=== PATIENT | male | born 1945 | race Caucasian/White ===

== ENCOUNTER → 2021-04-07 09:28 | Outpatient (CLI) | payer MEDICARE, SELFPAY ==
[2021-04-07 20:09] LABS: SARS-CoV-2 RNA PCR Negative
== END ==
PROVIDERS: PCP Internal Medicine; Visit Provider Physician Assistant
DX: J01.90 Acute sinusitis, unspecified (principal); Z20.822 Contact with and (suspected) exposure to COVID-19
CPT/HCPCS: C9803; U0003; U0005

== ENCOUNTER 2023-03-10 06:38 | Outpatient (CLI) | payer MEDICARE, SELFPAY ==
--- NOTE | ~2023-03-10 | MR_ITS ---
EXAMINATION: MR IAC wo/w con DATE: 03/10/2023 07:40 INDICATION: Asymmetrical sensorineural hearing loss. TECHNIQUE: Magnetic resonance imaging (MRI) of the brain, brainstem, and internal auditory canals was performed without and with 16 mL MultiHance intravenous contrast. COMPARISON: Head CT 07/18/2008 FINDINGS: There are scattered areas of nonspecific increased T2-weighted signal intensity in the cere bral white matter. There is no intracranial hemorrhage, acute infarction, or abnormal intracranial ma ss lesion. The ventricles are normal in size. The orbits are normal. There is mild mucosal thickening in the paranasal sinuses. The internal auditory canals and inner ears and tympanic cavities are norm al. There is a small right mastoid effusion. IMPRESSION: 1. Moderate nonspecific cerebral white matter disease, which likely represents chronic small vessel i schemic disease. Reviewed, dictated and finalized at location E. FIELD AGENT IMPRESSION: 1. Moderate nonspecific cerebral white matter disease, which likely represents chronic small vessel ischemic disease.
== END 2023-03-10 06:39 | disposition home or self-care (01) ==
PROVIDERS: PCP Physician Assistant; Visit Provider Otolaryngology
DX: H90.5 Unspecified sensorineural hearing loss (principal); R90.82 White matter disease, unspecified
CPT/HCPCS: 70553; A9577

== ENCOUNTER 2024-10-17 01:56 | Day surgery (SDC) | payer MEDICARE, SELFPAY ==
[2024-09-27 13:06] VITALS: BMI 30.2
--- OUTSIDE RECORDS SUMMARY | 2024-10-17 02:00 | XMS_ITS | Data Portability ---
Author Organization [facility], Main Office Address [address] [place] [address] Assessment No assessment recorded. Plan of Treatment Reminders Order Date Submit Date Provider Last Modified By Organization Details Last Modified Time Details Appointments None recorded. Lab HbA1c (hemoglobi n A1c), blood 2022 024 [facility] [place], [address], [place], [address], 5 04:22:53 PSA, total + free, serum or plasma 2022 024 [facility] [place], [address], [place], [address], 5 04:22:54 CBC w/ auto diff 2022 024 [facility] [place], [address], [place], [address], 5 04:22:52 hepatic function panel, serum 2022 024 [facility] [place], [address], [place], [address], 5 04:22:53 BMP, serum or plasma 2022 024 [facility] [place], [address], [address], [place], [address], 5 04:22:53 TSH + free T4, serum 2022 024 [facility] [place], [address], [place], [address], 5 04:22:54 lipid panel, serum 2022 024 [place] [facility], [address], [place], [address], 5 04:22:53 HbA1c (hemoglobi n A1c), blood 2022 023 [facility], [address], [place], [address], 3 08:45:15 PSA, total + free, serum or plasma 2022 023 [facility], [address], [address], [place], [address], 3 08:45:24 CBC w/ auto diff 2022 023 [place] [address] [facility], [address], [place], [address], 3 08:44:48 hepatic function panel, serum 2022 023 [place] [address] [facility], [address], [place], [address], 3 08:44:56 BMP, serum or plasma 2022 023 [place] [address] [facility], [address], [address], [place], [address], 3 08:45:06 lipid panel, serum 2022 023 [place] [facility], [address], [place], [address], 3 08:43:23 Referral None recorded. Procedures None recorded. Surgeries None recorded. Imaging None recorded. Medication Orders None recorded. Patient TargetsNo targets recorded. Patient Instructions Encounter Date Encounter Id Patient Instructions Last Modified By Organization Details Last Modified Time 01/24/2023 [id number] dementia rating scale-2* Not available 01/24/2023 12:41:00 multi-dimensiona l health assessment questionnaire* Not available 01/24/2023 12:41:14 care plan* [email or web address] Not available 01/24 12:40:46 advance care planning: care instructions Not available 01/24/2023 11:12:35 advance directiv es: care instructions Not available 01/24/2023 11:12:35 [place] Advance Directives Not available 01/24/2023 11:12:35 Personalized Hea lth Plan and Screening Recommendations Advance Directives - Do you have one? No Advance Directives - Do we have your advance directive on file in your health record? Primary Prevention/Interven tion (prevents or decreases the chance of common diseases from occurring) Smoking Risk: Non Smoker Alcohol Misuse Screening: Negative Weight: Overweight continue your current weight loss efforts Physical activity: Need more exercise/physical activity minimum of 10-20 minutes of activity that causes mild breathlessness/day Nutrition: Average Fall Risk (screened today): Low Vaccines Pneumococcal: Recommended today Influenza: Your next one in the fall of this year Chronic Disease Risks Stroke: High Risk Active diagnosis, Continue current treatment plan Heart Attack: High Risk Active diagnosis, Continue current treatment plan Clogging of the Arteries: High risk Active diagnosis, Continue current treatment plan Diabetes: High Risk Active diagnosis, Continue current treatment plan Secondary Prevention/Interven tion (detects treatable diseases before they may cause symptoms, disability, or ) Prostate Cancer Screening: Your next PSA in: ordered Colon Cancer Screening: Colonoscopy No screening necessary Date Screening Last Performed: Eye Disease Screening: Recommended today Dementia Risk: Low Depression Screening: Negative Active diagnosis, Continue current treatment plan Not available 01/30/2023 12:11:14 04/06/2023 [id number] this patient was recommended to undergo fitting for bilateral hearing aids. [email or web address] Not available 04/06/2023 11:44:31 Reason for Referral None Reported. Results Created Date Observation Date Name Description Value Unit Range Abnormal Flag Note LastModifiedBy Organization Detail LastModifiedTime 12/14/1912/13/2022 audio gram + tympa nogra m No observ ation record ed. [address] [facility] [address] [facility] [address], [place], [address], 12/14/2022 17:07:58 02/18/20 audio gram + tympa nogra m No observ ation record ed. [address] [facility] [address] [facility] [address], [place], [address], 02/21/2023 09:00:48 03/10/2003/10/2023 MRI, inter nal audit ory canal , w/wo contr ast No observ ation record ed. [address], [place], [address], 03/15/2023 10:06:18 03/17/20 23 03/10/2023 MRI, inter nal audit ory canal , w/wo contr ast No observ ation record ed. [address] [facility], [place], [address], 03/22/2023 09:04:08 Result Notes None recorded. 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 Alexander Madera MD [address], [place], [address] , meets 3 10:54:17 Asymmetrical sensorineural hearing loss 917360952 Active 2022 Sara STEPHANIE Sibley, [place] [facility] 3 14:14:15 Benign essential hypertension 9946250 Active 2018 Not Available [facility] 3 04:33:45 Blood glucose outside reference range 415986933 Active 2021 Not Available [facility] 3 04:33:45 Insomnia 789631726 Active 2018 Not Available [facility] 3 04:33:45 Prostate specific antigen above reference range 273775802 Active 2021 Not Available [facility] 3 04:33:45 Hyperlipidemi a 13088789 Active 2018 Not Available [facility] 3 04:33:45 Hyperglycemia 08269371 Active 2021 Not Available [facility] 3 04:33:46 Problem Notes None recorded. Procedures Surgical History Date Name Laterality Status Provider Name and Address Organization Details Recorded Time 01/25/20 Medicare Wellness CPT Code, subsequent completed YESSICA Singh meets 01/24/2023 10:34:54 05/05/19 18 Colonoscopy completed Not Available [facility] 06/03/19 04:29:31 Imaging Results None recorded. Procedure Notes None recorded. Medical Equipment None Reported. Allergies No known drug allergies Medications Name Sig Start Date Stop Date Status Note LastModified by Organization Details LastModified Time atorvastati n 20 mg tablet TAKE 1 TABLET EVERY DAY active Not Available Not Available No t Available triamcinolo ne acetonide 0.1 % topical cream active Not Available Not Available Not Available prednisolon e acetate 1 % eye drops,suspe nsion SHAKE LIQUID AND INSTILL 1 DROP IN LEFT EYE THREE TIMES DAILY. BEGIN DROPS 4 HOURS AFTER SURGERY AND. CONTINUE FOR 4 WEEKS AFTER SURGERY 07/31 completed Not Available Not Available Not Available ciprofloxac in 0.3 % eye drops INSTILL 1 DROP IN LEFT EYE THREE TIMES DAILY. BEGIN DROPS 3 DAYS BEFORE SURGERY AND. CONTINUE FOR 2 WEEKS AFTER SURGERY 07/31 completed Not Available Not Available Not Available amlodipine 10 mg tablet TAKE 1 TABLET EVERY DAY 2023 active Not Available Not Available Not Avai lable zolpidem 10 mg tablet TAKE 1 TABLET AT BEDTIME active Not Available Not Available No t Available lisinopril 40 mg tablet TAKE 1 TABLET TWICE DAILY active Not Available Not Available No t Available Pneumovax-2 3 25 mcg/0.5 mL injection syringe ADM 0.5ML IM UTD active Not Available Not Available No t Available Prolensa 0.07 % eye drops INSTILL 1 DROP IN LEFT EYE DAILY. BEGIN DROPS 3 DAYS BEFORE SURGERY AND. CONTINUE FOR 4 WEEKS AFTER SURGERY 07/31 completed Not Available Not Available Not Available Shingrix (PF) 50 mcg/0.5 mL intramuscul ar suspension, kit 09/05 completed Not Available Not Available Not Available Fluzone High-Dose (PF) 180 mcg/0.5 mL intramuscul ar syringe ADM 0.5ML IM UTD active Not Available Not Available No t Available Fluzone High-Dose (PF) 180 mcg/0.5 mL intramuscul ar syringe 02/08 completed Not Available Not Available Not Available Fluad Quad (6 5yr up)(PF) 60 mcg (15 mcg x 4)/0.5mL IM syringe active Not Available Not Available Not Available Vitals Date Recorded Body height Body mass index (BMI) Body weight Provider Name and Address Organization Details Last Updated DateTime 04/06/2023 167.64 cm 31.5 kg/m2 55669.95 g Serenity Escalante RN [facility] [employer] 04/06/2023 11:22:19 Date Recorded Systolic And Diastolic Provider Name and Address Organization Details Last Updated DateTime 07/26/2022 140/80 mm[Hg] MOON Quevedo [address] [facility], [facility] [address], [place], [address], [facility] 07/26/2022 10:18:51 Date Recorded Body height Body temperature Body mass index (BMI) Body weight Respiratory rate Oxygen saturation Oxygen saturation in Arterial blood by Pulse oximetry Heart rate Systolic And Diastolic Provider Name and Address Organization Details Last Updated DateTime 167.64 cm 97.6 [degF] 30.5 kg/m2 44951.9 6 g 16 /min 97 % 97 % 74 /min 138/80 mm[Hg] YESSICA Singh [facility] 3 09:57:58 Date Recorded Body height Body mass index (BMI) Body weight Body temperature Provider Name and Address Organization Details Last Updated DateTime 11/25/2022 167.64 cm 30.8 kg/m2 74959.42 g 97.9 [degF] Serenity Escalante RN [facility] [employer] [facility] 11/25/2022 10:33:14 Date Recorded Systolic And Diastolic Provider Name and Address Organization Details Last Updated DateTime 01/24/2023 130/70 mm[Hg] MOON Quevedo [address] [place] [address], [address], [facility] [employer] [facility] 01/24/2023 11:15:33 Date Recorded Body height Body temperature Body mass index (BMI) Body weight Respiratory rate Oxygen saturation Oxygen saturation in Arterial blood by Pulse oximetry Heart rate Systolic And Diastolic Provider Name and Address Organization Details Last Updated DateTime 3 167.64 cm 97.2 [degF] 30.8 kg/m2 33137.1 4 g 16 /min 97 % 97 % 83 /min 148/80 mm[Hg] YESSICA Singh [facility] 3 10:42:15 Date Recorded Body mass index (BMI) Body height Oxygen saturation Oxygen saturation in Arterial blood by Pulse oximetry Heart rate Respiratory rate Body temperature Body weight Systolic And Diastolic Provider Name and Address Organization Details Last Updated DateTime 2 30.8 kg/m2 167.64 cm 97 % 97 % 82 /min 16 /min 97.6 [degF] 35137.1 4 g 130/82 mm[Hg] Not Available [facility] 3 04:32:45 Social History Question Answer Notes LastModified by Organizat ion Details LastModified Time Tobacco Smoking Status Never Smoker Not Available [facility] 06/02/2022 04:20:59 Do You Have An Advance Directive? No [id number] Information not available 06/02/2022 Are You Blind Or Do You Have Difficulty Seeing? No MIGRATION.[id number] 9237 Information not available 06/02/2022 What Is Your Level Of Caffeine Consumption? None MIGRATION.887057 6806 Information not available 06/02/2022 How Much Tobacco Do You Chew? None MIGRATION.595401 2758 Information not available 06/02/2022 In The 14 Days Before Symptom Onset, Have You Had Close Contact With A Laboratory-confirm ed COVID-19 While That Case Was Ill? No MIGRATION.[id number] 2723 Information not available 06/02/2022 In The 14 Days Before Symptom Onset, Have You Had Close Contact With A Person Who Is Under Investigation For COVID-19 While That Person Was Ill? No MIGRATION.702402 5352 Information not available 06/02/2022 Are You Deaf Or Do You Have Serious Difficulty Hearing? No MIGRATION.[id number] 1830 Information not available 06/02/2022 What Type Of Diet Are You Following? REGULAR MIGRATION.487717 7801 Information not available 06/02/2022 Which Illicit Or Recreational Drugs Have You Used? None MIGRATION.230044 0916 Information not available 06/02/2022 Have There Been Any Changes To Your Family Or Social Situation? No MIGRATION.269922 4057 Information not available 06/02/2022 Do You Use Insect Repellent Routinely? No MIGRATION.799324 0251 Information not available 06/02/2022 Advance Directive- Providers Has Reviewed Directive And Consents To Follow Them (insert Provider Name With Any Objectives In Notes Field) No MIGRATION.770081 9647 Information not available 06/02/2022 Do You Have A Medical Power Of Treasury Associate? No MIGRATION.273243 2103 Information not available 06/02/2022 What Is Your Relationship Status? MIGRATION.150821 4998 Information not available 06/02/2022 Do You Use Your Seat Belt Or Car Seat Routinely? Yes MIGRATION.439645 1551 Information not available 06/02/2022 Do You Have Smoke And Carbon Monoxide Detectors In Your Home? Yes MIGRATION.062360 0033 Information not available 06/02/2022 How Much Tobacco Do You Smoke? No MIGRATION.675068 8067 Information not available 06/02/2022 Do You Use Sunscreen Routinely? No MIGRATION.168514 9648 Information not available 06/02/2022 Have You Recently Traveled Abroad? No MIGRATION.357685 5090 Information not available 06/02/2022 Do You Have Difficulty Walking Or Climbing Stairs? No MIGRATION.753191 1888 Information not available 06/02/2022 Do You Have Any Dietary Restrictions? No MIGRATION.016443 0870 Information not available 06/02/2022 Sex: Unknown Functional Status Question Answer Note LastModified by Organizat ion Details LastModified Time Do you use any illicit or recreational drugs? No MIGRATION.882339 1906 Information not available 06/02/2022 Do you or have you ever used any other forms of tobacco or nicotine? No MIGRATION.854496 3774 Information not available 06/02/2022 What is your level of alcohol consumption? Occasional MIGRATION.567488 8531 Information not available 06/02/2022 Do you or have you ever used smokeless tobacco? Never used smokeless tobacco MIGRATION.731245 8877 Information not available 06/02/2022 Do you have transportation difficulties? No MIGRATION.247550 7983 Information not available 06/02/2022 Are you able to walk? YESWOREST MIGRATION.745476 7304 Information not available 06/02/2022 Do you have difficulty doing errands alone? No MIGRATION.370959 6117 Information not available 06/02/2022 Are you able to care for yourself? Yes MIGRATION.573721 9556 Information not available 06/02/2022 Do you have difficulty dressing or bathing? No MIGRATION.410016 7308 Information not available 06/02/2022 Do you or have you ever used e-cigarettes or vape? Never used electronic cigarettes MIGRATION.777320 7072 Information not available 06/02/2022 What is your exercise level? Heavy MIGRATION.892617 4238 Information not available 06/02/2022 Mental Status Question Answer Note LastModified by Organizat ion Details LastModified Time Do you have difficulty concentrating, remembering or making decisions? No MIGRATION.[id number] 6 Information not available 06/02/2022 Family History Relationship Description Onset Age of this Age Resolved Age Notes LastModified by Organization Details LastModified Time Mother Dementia [id number] Not available 06/02/2022 04:29:37 Notes:NO ENT Medical History Condition Response EYE PROBLEMS SLEEP DISORDER Y HYPERTENSION Y Immunizations Vaccine Type Date Status Note Provider Nam e and Address Organization Details Recorded Time Influenza, high-dose, trivalent, PF 9 completed Not Available [facility] 06/02/2022 04:39:12 Influenza, split virus, quadrivalent, preservative 0 completed Not Available [facility] 06/02/2022 04:39:12 Past Encounters Encounter ID Performer Location Encounter Start Date Encounter Closed Date Diagnosis/Indication Diagnosis SNOMED-CT Code Diagnosis ICD10 Code Diagnosis Note [id number] MOON Quevedo [facility] [address] [place] [address] 08/01/2020 00:00:00 08/01/2020 09:41:34 [id number] MOON Quevedo [facility] [place] [address] [place] [address] 01/30/2021 00:00:00 01/30/2021 09:23:26 [id number] Emmanuel Moreno MD [facility] [place] [address] [place] [address] 07/31/2021 00:00:00 07/31/2021 12:24:35 [id number] MOON Quevedo [facility] [place] [address] [place] [address] 01/25/2022 00:00:00 01/30/2022 15:07:51 [id number] MOON Quevedo [facility] [place] [address] [place] [address] 07/26/2022 09:48:30 07/26/2022 10:50:25 Benign essential hypertension 6955856 I10 stable on amlodipine 10mg daily and lisinopril 40mg daily. Hyperlipidemia 49529117 E78.5 stable on atorvastat in 20mg daily. Prostate s pecific antigen above reference range 060167052 R97.20 Urology to follow now , they have completed MRI prostate and want to biopsy but pt has placed that on hold for now . PSA 5.1 total. repeat in january only per pt request. Impaired f asting glycemia 147584768 R73.01 5.5% a1c with mild elevation in fasting. Insomnia 727930209 G47.0 0 stable on zolpidem 10mg qhs Long-term drug therapy 204402582 Z79.899 next labs due in January [id number] Alexander Madera MD [facility] [place] [address] [place] [address] 11/25/2022 09:53:20 11/25/2022 11:08:46 Noise-induced hearing loss 06894702 H83.3X9 [id number] MOON Quevedo [facility] [place] [address] [place] [address] 01/24/2023 10:33:17 01/24/2023 11:24:08 Adult health examination 260991805 Z00.00 mawe and routine appt Screening for disorder 020419296 Z13.9 Benign ess ential hypertension 2396760 I10 stable on amlodipine 10mg daily and lisinopril 40mg daily. Hyperlipidemia 05718537 E78.5 stable on atorvastat in 20mg daily. Prostate s pecific antigen above reference range 197052607 R97.20 Urology to follow now , they have completed MRI prostate and want to biopsy but pt has placed that on hold for now . PSA 5.8 total. repeat in january only per pt request. Impaired f asting glycemia 326457131 R73.01 5.7% a1c with mild elevation in fasting. Insomnia 903052757 G47.0 0 stable on zolpidem 10mg qhs Long-term drug therapy 966640341 Z79.899 next labs due in july 2023 [id number] Alexandre Madera MD [facility] [address] [place] [address] 04/06/2023 11:17:27 04/06/2023 12:08:23 Noise-induced hearing loss 38384747 H83.3X9 Health Concerns Section Related Observation LastModified by Organization Detai ls LastModified Time None Recorded Concern Status LastModified by Organization Details LastModified Time None Recorded Advance Directives Directive N: Payers Insurance Date Sequence Insurance Name Policy Number Policy Reynolds Covered Member ID Reynolds Member ID Guarantor Name 04/13/2023 1 [employer] - GOLD PLUS (MEDICARE REPLACEMENT/A DVANTAGE - HMO) Emmanuel Walker [id number] Emmanuel Walker Notes Date Note Type Note Provider Name and Address Organization Details Recorded Time 2 text/html HyperlipidemiaReported bypatient.Duration:chronic Control:usually well controlled Current Therapy:currently taking: (atorvastatin 20mg) Compliance:compliant; exercises;noncompliant with diet Complications:no coronary artery disease; no peripheral artery disease; no cardiovascular disease Risk Factors:hypertensionHypert ensionReported bypatient.Duration:has noted for years Onset/Timing:better Alleviating Factors:medication Self Care:under emotional stress Associated Symptoms:no shortness of breath; no fatigue; no palpitations; no decline in exercise capacity; no snoring Not Available [employer] 01/30/2022 15:07:51 3 text/html HyperlipidemiaReported bypatient.Duration:chronic Control:usually well controlled Current Therapy:currently taking: (atorvastatin 20mg) Compliance:compliant; compliant with diet; exercises Complications:no coronary artery disease; no peripheral artery disease; no cardiovascular disease Risk Factors:hypertensionHypert ensionReported bypatient.Duration:has noted for years Onset/Timing:better Alleviating Factors:medication Associated Symptoms:no shortness of breath; no fatigue; no palpitations; no decline in exercise capacity; no snoring MOON Quevedo [address] [facility], [address] [place] [address], [place], [address], meets 07/29/2022 16:44:30 3 text/html 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 He is aware of hearing loss but predictably this is getting worse with time. There is no change in medication. There is no vertigo or tinnitus. There is no new source of noise exposure. Alexander Madera MD [address], [place], [address], [employer] 11/25/2022 10:54:41 3 text/html HyperlipidemiaReported bypatient.Duration:chronic Control:usually well controlled; improving; at goal Compliance:compliant; compliant with diet; exercises Complications:no coronary artery disease; no peripheral artery disease; no cardiovascular disease Risk Factors:hypertensionHypert ensionReported bypatient.Duration:has noted for years Onset/Timing:better Alleviating Factors:medication Associated Symptoms:no shortness of breath; no fatigue; no palpitations; no decline in exercise capacity; no snoring MOON Quevedo [address], [facility] [address], [place], [address], meets 01/30/2023 12:11:41 4 text/html 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 He has reported that his hearing has steadily deteriorated and he does have an audiogram revealing severe bilateral sensorineural hearing loss with the left being worse than the right including with word recognition scores. An MRI was normal except for sinusitis which he reports is asymptomatic Alexander Madera MD [address], [facility] [address], [place], [address], meets 04/06/2023 11:44:50
--- OUTSIDE RECORDS SUMMARY | 2024-10-17 02:00 | XMS_ITS | Data Portability ---
Author Organization [facility] Address [address], [place] [address] Care Team Providers Care Transitions Manager Name Role Phone MAVIS MCGHEE Primary Care Provider Unavailab le Assessment Encounter Date Assessment Date Assessment LastModified by Organization Details LastModified Time 07/19/2024 07/19/2024 We can discuss this at his July 19 appointment but he is PSA has gone up higher to 9.4. He is previously been resistant to follow up with Urology despite being requested to on multiple occasions. [email or web address] Not available 08/05/2024 17:08:45 Plan of Treatment Reminders Order Date Submit Date Provider Last Modified By Organization Details Last Modified Time Details Appointments ANY 15 2024 09:30A M MOON Quevedo Not available Not available Not available Lab HbA1c (hemoglob in A1c), blood 2024 025 [email or web address] [facility], [address] [facility] [address], [place], [address], 07/19/2024 10:13:33 CBC w/ auto diff 2024 025 [email or web address] [facility], [address] [facility] [address], [place], [address], 07/19/2024 10:13:33 hepatic function panel, serum 2024 025 [email or web address] [facility], [address] [facility], [facility] [address], [place], [address], 07/19/2024 10:13:33 BMP, serum or plasma 2024 025 [email or web address] [facility], [address], [place], [address], 07/19/2024 10:13:33 lipid panel, serum 2024 025 [email or web address] [facility], [address], [place], [address], 07/19/2024 10:13:33 HbA1c (hemoglob in A1c), blood 2023 025 [facility], [address], [place], [address], 07/19/2024 06:01:49 PSA, serum or plasma 2023 025 [facility], [address], [place], [address], 07/19/2024 06:01:49 CBC w/ auto diff 2023 025 [facility], [address] [facility], [address], [place], [address], 07/19/2024 06:01:50 hepatic function panel, serum 2023 025 [facility], [address], [place], [address], 07/19/2024 06:01:50 BMP, serum or plasma 2023 025 [facility], [address], [place], [address], 07/19/2024 06:01:51 TSH + free T4, serum 2023 025 [facility], [address], [place], [address], 07/19/2024 06:01:51 lipid panel, serum 2023 025 [facility], [address], [place], [address], 07/19/2024 06:01:50 HbA1c (hemoglob in A1c), blood 2023 024 [facility], [address] [facility], [facility] [address], [place], [address], 01/20/2024 08:30:10 PSA, serum or plasma 2023 024 [facility], [address] [facility], [facility] [address], [place], [address], 01/20/2024 08:30:09 CBC w/ auto diff 2023 024 [facility], [address] [facility], [facility] [address], [place], [address], 01/20/2024 08:30:11 hepatic function panel, serum 2023 024 [facility], [address] [facility], [facility] [address], [place], [address], 01/20/2024 08:30:07 BMP, serum or plasma 2023 024 [facility], [address] [facility], [facility] [address], [place], [address], 01/20/2024 08:30:08 TSH + free T4, serum 2023 024 [facility], [address] [facility], [facility] [address], [place], [address], 01/20/2024 08:30:05 lipid panel, serum 2023 024 [facility], [address] [facility], [facility] [address], [place], [address], 01/20/2024 08:30:06 Referral urologist referral 2024 025 FOREIGN Munguia MD, [address], [place], [address], 09/03/2024 12:03:21 Procedures None recorded. Surgeries None recorded. Imaging None recorded. Medication Orders None recorded. Patient TargetsNo targets recorded. Patient InstructionsNo instructions recorded. Reason for Referral Urologist Referral for Prost ate specific antigen above reference range PSA has now increased to 9.4, steady increase each lab. hx of seeeing Dr. Romero Referring Physician: Mavis Mcghee, Internal Medicine, Encounter Date: 07/19/2024 Results Created Date Observation Date Name Description Value Unit Range Abnormal Flag Note LastModifiedBy Organization Detail LastModifiedTime 01/19/2001/20/2024 TSH+F REE T4 TSH 2.800 uIU/m L 0.450- 4.500 Not Available [facility] ([facility]) [address] [place], [address], 01/20/2024 08:30:05 01/19/2001/20/2024 TSH+F REE T4 T4,free(dire ct) 1.30 NG/dL 0.82-1 .77 Not Available [facility] ([facility]) [address] [place], [address], 01/20/2024 08:30:05 01/19/20 24 01/20/2024 LIPID PANEL cholesterol, total 153 mg/dL 100-19 9 Not Available [facility] ([facility]) [address] [place], [address], 01/20/2024 08:30:06 01/19/2001/20/2024 LIPID PANEL triglyceride s 98 mg/dL 0-149 Not Available [facility] ([facility]) [address] [place], [address], 01/20/2024 08:30:06 01/19/2001/20/2024 LIPID PANEL HDL cholesterol 64 mg/dL >39 Not Available [facility] ([facility]) [address] [place], [address], 01/20/2024 08:30:06 01/19/20 24 01/20/2024 LIPID PANEL VLDL cholesterol jn 18 mg/dL 5-40 Not Available [facility] ([facility]) [address] [place], [address], 01/20/2024 08:30:06 01/19/20 24 01/20/2024 LIPID PANEL LDL chol calc ([facility]) 71 mg/dL 0-99 Not Available [facility] ([facility]) [address] [place], [address], 01/20/2024 08:30:06 01/19/2001/20/2024 HEPAT IC FUNCT ION PANEL (7) protein, total 6.5 g/dL 6.0-8. 5 Not Available [facility] ([facility]) [address] [place], [address], 01/20/2024 08:30:07 01/19/20 24 01/20/2024 HEPAT IC FUNCT ION PANEL (7) albumin 4.3 g/dL 3.8-4. 8 Not Available [facility] ([facility]) [address] [place], [address], 01/20/2024 08:30:07 01/19/20 24 01/20/2024 HEPAT IC FUNCT ION PANEL (7) bilirubin, total 0.5 mg/dL 0.0-1. 2 Not Available [facility] ([facility]) [address] [place], [address], 01/20/2024 08:30:07 01/19/20 24 01/20/2024 HEPAT IC FUNCT ION PANEL (7) bilirubin, direct 0.15 mg/dL 0.00-0 .40 Not Available [facility] ([facility]) [address] [place], [address], 01/20/2024 08:30:07 01/19/20 24 01/20/2024 HEPAT IC FUNCT ION PANEL (7) alkaline phosphatase 76 IU/L 44-121 Not Available [facility] ([facility]) [address] [facility], [address], 01/20/2024 08:30:07 01/19/20 24 01/20/2024 HEPAT IC FUNCT ION PANEL (7) AST (SGOT) 26 IU/L 0-40 Not Available [facility] ([facility]) [address] [facility] [place], [address], 01/20/2024 08:30:07 01/19/20 24 01/20/2024 HEPAT IC FUNCT ION PANEL (7) ALT (SGPT) 25 IU/L 0-44 Not Available [facility] ([facility]) [address] [facility], [address], 01/20/2024 08:30:07 01/19/2001/20/2024 BMP7+ EGFR glucose 104 mg/dL 70-99 above high normal Not Available [facility] ([facility]) [address] [facility], [address], 01/20/2024 08:30:08 01/19/20 24 01/20/2024 BMP7+ EGFR BUN 15 mg/dL 8-27 Not Available [facility] ([facility]) [address] [facility], [address], 01/20/2024 08:30:08 01/19/20 24 01/20/2024 BMP7+ EGFR creatinine 1.03 mg/dL 0.76-1 .27 Not Available [facility] ([facility]) [address] [facility], [address], 01/20/2024 08:30:08 01/19/20 24 01/20/2024 BMP7+ EGFR eGFR 74 mL/mi n/1.7 3 >59 Not Available [facility] ([facility]) [address] [place], [address], 01/20/2024 08:30:08 01/19/20 24 01/20/2024 BMP7+ EGFR sodium 139 mmol/ L 134-14 4 Not Available [facility] ([facility]) [address] [facility], [place], [address], 01/20/2024 08:30:08 01/19/20 24 01/20/2024 BMP7+ EGFR potassium 4.9 mmol/ L 3.5-5. 2 Not Available [facility] ([facility]) [address] [facility], [place], [address], 01/20/2024 08:30:08 01/19/2001/20/2024 BMP7+ EGFR chloride 102 mmol/ L 96-106 Not Available [facility] ([facility]) [address] [facility], [place], [address], 01/20/2024 08:30:08 01/19/2001/20/2024 BMP7+ EGFR carbon dioxide, total 24 mmol/ L 20-29 Not Available [facility] ([facility]) [address] [place], [address], 01/20/2024 08:30:08 01/19/2001/19/2024 PSA TOTAL (REFL EX TO FREE) reflex criteria COMMEN T The perce nt free PSA is perfo rmed on a refle x basis only when the total PSA is betwe en 4.0 and 10.0 ng/mL . Not Available [facility] ([facility]) [address] [facility], [place], [address], 01/20/2024 08:30:08 01/19/2001/20/2024 PSA TOTAL (REFL EX TO FREE) prostate specific Ag 8.3 NG/mL 0.0-4. 0 above high normal Deny ECLIA metho dolog y. Accor ding to the Ameri can Urolo gical Assoc iatio n, Serum PSA shoul d decre ase and remai n at undet ectab le level s after radic al prost atect marcos. The AUA defin es bioch emica l recur rence as an initi al PSA value 0.2 ng/mL or great er follo wed by a subse quent confi rmato ry PSA value 0.2 ng/mL or great er. Value s obtai valentin with diffe rent assay metho ds or kits canno t be used inter rice eably . Resul ts canno t be inter prete d as absol kenaitze evide nce of the prese nce or absen ce of susan liu se. Not Available [facility] ([facility]) [address] [place], [address], 01/20/2024 08:30:08 01/19/20 24 01/20/2024 %FPSA REFLE X PSA, free 0.47 NG/mL n/a Deny ECLIA metho dolog y. Not Available [facility] ([facility]) [address] [place], [address], 01/20/2024 08:30:09 01/19/20 24 01/20/2024 %FPSA REFLE X % free PSA 5.7 % The table below lists the proba bilit y of prost ate cance r for men with non-s uspic ious KENNETH resul ts and total PSA betwe en 4 and 10 ng/mL , by patie nt age (Verona ari et al, REZA 1998, 279:1 542). % Free PSA 50-64 yr 65-75 yr 0.00- 10.00 % 56% 55% 10.01 -15.0 0% 24% 35% 15.01 -20.0 0% 17% 23% 20.01 -25.0 0% 10% 20% >25.0 0% 5% 9% Plenoé e note: Lucy kessler et al did not make speci fic recom menda tions regar ding the use of perce nt free PSA for any other popul ation of men. Not Available [facility] ([facility]) [address] [facility], [place], [address], 01/20/2024 08:30:09 01/19/20 24 01/20/2024 HEMOG LOBIN A1C hemoglobin A1C 5.6 % 4.8-5. 6 Predi abete s: 5.7 - 6.4 Diabe tono: >6.4 Glyce citlaly contr ol for adult s with diabe tono: <7.0 Not Available [facility] ([facility]) [address] [facility], [place], [address], 01/20/2024 08:30:10 01/19/20 24 01/20/2024 CBC WITH DIFFE RENTI AL/PL ATELE T WBC 7.6 x10e3 /uL 3.4-10 .8 Not Available [facility] ([facility]) [address] [place], [address], 01/20/2024 08:30:11 01/19/20 24 01/20/2024 CBC WITH DIFFE RENTI AL/PL ATELE T RBC 4.56 x10e6 /uL 4.14-5 .80 Not Available [facility] ([facility]) [address] [facility], [place], [address], 01/20/2024 08:30:11 01/19/20 24 01/20/2024 CBC WITH DIFFE RENTI AL/PL ATELE T hemoglobin 15.0 g/dL 13.0-1 7.7 Not Available [facility] ([facility]) [address] [facility], [place], [address], 01/20/2024 08:30:11 01/19/20 24 01/20/2024 CBC WITH DIFFE RENTI AL/PL ATELE T hematocrit 44.1 % 37.5-5 1.0 Not Available [facility] ([facility]) [address] [place], [address], 01/20/2024 08:30:11 01/19/20 24 01/20/2024 CBC WITH DIFFE RENTI AL/PL ATELE T MCV 97 fL 79-97 Not Available [facility] ([facility]) [address] [facility], [place], [address], 01/20/2024 08:30:11 01/19/2001/20/2024 CBC WITH DIFFE RENTI AL/PL ATELE T MCH 32.9 pg 26.6-3 3.0 Not Available [facility] ([facility]) [address] [facility], [place], [address], 01/20/2024 08:30:11 01/19/2001/20/2024 CBC WITH DIFFE RENTI AL/PL ATELE T MCHC 34.0 g/dL 31.5-3 5.7 Not Available [facility] ([facility]) [address] [facility], [place], [address], 01/20/2024 08:30:11 01/19/2001/20/2024 CBC WITH DIFFE RENTI AL/PL ATELE T RDW 12.4 % 11.6-1 5.4 Not Available [facility] ([facility]) [address] [facility], [place], [address], 01/20/2024 08:30:11 01/19/2001/20/2024 CBC WITH DIFFE RENTI AL/PL ATELE T platelets 281 x10e3 /uL 150-45 0 Not Available [facility] ([facility]) [address] [facility], [place], [address], 01/20/2024 08:30:11 01/19/2001/20/2024 CBC WITH DIFFE RENTI AL/PL ATELE T neutrophils 44 % notest ab. Not Available [facility] ([facility]) [address] [facility], [place], [address], 01/20/2024 08:30:11 01/19/2001/20/2024 CBC WITH DIFFE RENTI AL/PL ATELE T lymphs 41 % notest ab. Not Available [facility] ([facility]) [address] [facility], [place], [address], 01/20/2024 08:30:11 01/19/20 24 01/20/2024 CBC WITH DIFFE RENTI AL/PL ATELE T monocytes 10 % notest ab. Not Available [facility] ([facility]) [address] [facility], [place], [address], 01/20/2024 08:30:11 01/19/2001/20/2024 CBC WITH DIFFE RENTI AL/PL ATELE T eos 4 % notest ab. Not Available [facility] ([facility]) [address] [facility], [place], [address], 01/20/2024 08:30:11 01/19/2001/20/2024 CBC WITH DIFFE RENTI AL/PL ATELE T basos 1 % notest ab. Not Available [facility] ([facility]) [address] [facility], [place], [address], 01/20/2024 08:30:11 01/19/20 24 01/20/2024 CBC WITH DIFFE RENTI AL/PL ATELE T neutrophils (absolute) 3.3 x10e3 /uL 1.4-7. 0 Not Available [facility] ([facility]) [address] [facility], [place], [address], 01/20/2024 08:30:11 01/19/20 24 01/20/2024 CBC WITH DIFFE RENTI AL/PL ATELE T lymphs (absolute) 3.1 x10e3 /uL 0.7-3. 1 Not Available [facility] ([facility]) [address] [facility], [place], [address], 01/20/2024 08:30:11 01/19/20 24 01/20/2024 CBC WITH DIFFE RENTI AL/PL ATELE T monocytes(ab solute) 0.8 x10e3 /uL 0.1-0. 9 Not Available [facility] ([facility]) [address] [place], [address], 01/20/2024 08:30:11 01/19/20 24 01/20/2024 CBC WITH DIFFE RENTI AL/PL ATELE T eos (absolute) 0.3 x10e3 /uL 0.0-0. 4 Not Available [facility] ([facility]) [address] [place], [address], 01/20/2024 08:30:11 01/19/20 24 01/20/2024 CBC WITH DIFFE RENTI AL/PL ATELE T baso (absolute) 0.1 x10e3 /uL 0.0-0. 2 Not Available [facility] ([facility]) [address] [place], [address], 01/20/2024 08:30:11 01/19/20 24 01/20/2024 CBC WITH DIFFE RENTI AL/PL ATELE T immature granulocytes 0 % notest ab. Not Available [facility] ([facility]) [address] [place], [address], 01/20/2024 08:30:11 01/19/20 24 01/20/2024 CBC WITH DIFFE RENTI AL/PL ATELE T immature grans (abs) 0.0 x10e3 /uL 0.0-0. 1 Not Available [facility] ([facility]) [address] [place], [address], 01/20/2024 08:30:11 07/14/1907/14/2024 TSH+F REE T4 TSH 3.140 uIU/m L 0.450- 4.500 Not Available [facility] ([facility]) [address] [place], [address], 07/14/2024 09:18:51 07/14/19 25 07/14/2024 TSH+F REE T4 T4,free(dire ct) 1.38 NG/dL 0.82-1 .77 Not Available [facility] ([facility]) [address] [facility], [address], 07/14/2024 09:18:51 07/14/19 25 07/14/2024 HEPAT IC FUNCT ION PANEL (6) albumin 4.4 g/dL 3.8-4. 8 Not Available [facility] ([facility]) [address] [facility] [place], [address], 07/14/2024 09:18:52 07/14/19 25 07/14/2024 HEPAT IC FUNCT ION PANEL (6) bilirubin, total 0.5 mg/dL 0.0-1. 2 Not Available [facility] ([facility]) [address] [facility], [address], 07/14/2024 09:18:52 07/14/19 25 07/14/2024 HEPAT IC FUNCT ION PANEL (6) bilirubin, direct 0.16 mg/dL 0.00-0 .40 Not Available [facility] ([facility]) [address] [place], [address], 07/14/2024 09:18:52 07/14/19 25 07/14/2024 HEPAT IC FUNCT ION PANEL (6) alkaline phosphatase 79 IU/L 44-121 Not Available [facility] ([facility]) [address] [place], [address], 07/14/2024 09:18:52 07/14/19 25 07/14/2024 HEPAT IC FUNCT ION PANEL (6) AST (SGOT) 24 IU/L 0-40 Not Available [facility] ([facility]) [address] [place], [address], 07/14/2024 09:18:52 07/14/19 25 07/14/2024 HEPAT IC FUNCT ION PANEL (6) ALT (SGPT) 25 IU/L 0-44 Not Available [facility] ([facility]) [address] [place], [address], 07/14/2024 09:18:52 07/14/19 25 07/14/2024 LIPID PANEL cholesterol, total 178 mg/dL 100-19 9 Not Available [facility] ([facility]) [address] [place], [address], 07/14/2024 09:18:52 07/14/19 25 07/14/2024 LIPID PANEL triglyceride s 97 mg/dL 0-149 Not Available [facility] ([facility]) [address] [place], [address], 07/14/2024 09:18:52 07/14/19 25 07/14/2024 LIPID PANEL HDL cholesterol 61 mg/dL >39 Not Available [facility] ([facility]) [address] [place], [address], 07/14/2024 09:18:52 07/14/19 25 07/14/2024 LIPID PANEL VLDL cholesterol jn 18 mg/dL 5-40 Not Available [facility] ([facility]) [address] [place], [address], 07/14/2024 09:18:52 07/14/19 25 07/14/2024 LIPID PANEL LDL chol calc ([facility]) 99 mg/dL 0-99 Not Available [facility] ([facility]) [address] [place], [address], 07/14/2024 09:18:52 07/14/19 25 07/14/2024 BMP7+ EGFR glucose 124 mg/dL 70-99 above high normal Not Available [facility] ([facility]) [address] [place], [address], 07/14/2024 09:18:53 07/14/19 25 07/14/2024 BMP7+ EGFR BUN 11 mg/dL 8-27 Not Available [facility] ([facility]) [address] [place], [address], 07/14/2024 09:18:53 07/14/19 25 07/14/2024 BMP7+ EGFR creatinine 1.00 mg/dL 0.76-1 .27 Not Available [facility] ([facility]) [address] [place], [address], 07/14/2024 09:18:53 07/14/19 25 07/14/2024 BMP7+ EGFR eGFR 77 mL/mi n/1.7 3 >59 Not Available [facility] ([facility]) [address] [place], [address], 07/14/2024 09:18:53 07/14/19 25 07/14/2024 BMP7+ EGFR sodium 136 mmol/ L 134-14 4 Not Available [facility] ([facility]) [address] [place], [address], 07/14/2024 09:18:53 07/14/19 25 07/14/2024 BMP7+ EGFR potassium 4.3 mmol/ L 3.5-5. 2 Not Available [facility] ([facility]) [address] [place], [address], 07/14/2024 09:18:53 07/14/19 25 07/14/2024 BMP7+ EGFR chloride 100 mmol/ L 96-106 Not Available [facility] ([facility]) [address] [place], [address], 07/14/2024 09:18:53 07/14/19 25 07/14/2024 BMP7+ EGFR carbon dioxide, total 21 mmol/ L 20-29 Not Available [facility] ([facility]) [address] [place], [address], 07/14/2024 09:18:53 07/14/19 25 07/13/2024 PSA TOTAL (REFL EX TO FREE) reflex criteria COMMEN T The perce nt free PSA is perfo rmed on a refle x basis only when the total PSA is betwe en 4.0 and 10.0 ng/mL . Not Available [facility] ([facility]) [address] [facility], [place], [address], 07/14/2024 09:18:53 07/14/19 25 07/14/2024 PSA TOTAL (REFL EX TO FREE) prostate specific Ag 9.4 NG/mL 0.0-4. 0 above high normal Deny ECLIA metho dolog y. Accor ding to the Ameri can Urolo gical Assoc iatio n, Serum PSA shoul d decre ase and remai n at undet ectab le level s after radic al prost atect marcos. The AUA defin es bioch emica l recur rence as an initi al PSA value 0.2 ng/mL or great er follo wed by a subse quent confi rmato ry PSA value 0.2 ng/mL or great er. Value s obtai valentin with diffe rent assay metho ds or kits canno t be used inter rice eably . Resul ts canno t be inter prete d as absol kenaitze evide nce of the prese nce or absen ce of susan liu se. Not Available [facility] ([facility]) [address] [facility], [place], [address], 07/14/2024 09:18:53 07/14/19 25 07/14/2024 %FPSA REFLE X PSA, free 0.59 NG/mL n/a Deny ECLIA metho dolog y. Not Available [facility] ([facility]) [address] [place], [address], 07/14/2024 09:18:54 07/14/1907/14/2024 %FPSA REFLE X % free PSA 6.3 % The table below lists the proba bilit y of prost ate cance r for men with non-s uspic ious KENNETH resul ts and total PSA betwe en 4 and 10 ng/mL , by patie nt age (Verona ari et al, REZA 1998, 279:1 542). % Free PSA 50-64 yr 65-75 yr 0.00- 10.00 % 56% 55% 10.01 -15.0 0% 24% 35% 15.01 -20.0 0% 17% 23% 20.01 -25.0 0% 10% 20% >25.0 0% 5% 9% Chad sotelo note: Lucy baird al did not make speci fic recom menda timami regar ding the use of perce nt free PSA for any other popul ation of men. Not Available [facility] ([facility]) [address] [place], [address], 07/14/2024 09:18:54 07/14/1907/14/2024 HEMOG LOBIN A1C hemoglobin A1C 5.6 % 4.8-5. 6 Predi abete s: 5.7 - 6.4 Diabe tono: >6.4 Glyce citlaly contr ol for adult s with diabe tono: <7.0 Not Available [facility] ([facility]) [address] [place], [address], 07/14/2024 09:18:54 07/14/1907/14/2024 CBC WITH DIFFE RENTI AL/PL ATELE T WBC 7.1 x10e3 /uL 3.4-10 .8 Not Available [facility] ([facility]) [address] [place], [address], 07/14/2024 09:18:55 07/14/1907/14/2024 CBC WITH DIFFE RENTI AL/PL ATELE T RBC 4.42 x10e6 /uL 4.14-5 .80 Not Available [facility] ([facility]) [address] [place], [address], 07/14/2024 09:18:55 07/14/1907/14/2024 CBC WITH DIFFE RENTI AL/PL ATELE T hemoglobin 14.1 g/dL 13.0-1 7.7 Not Available [facility] ([facility]) [address] [place], [address], 07/14/2024 09:18:55 07/14/19 25 07/14/2024 CBC WITH DIFFE RENTI AL/PL ATELE T hematocrit 42.5 % 37.5-5 1.0 Not Available [facility] ([facility]) [address] [facility], [place], [address], 07/14/2024 09:18:55 07/14/19 25 07/14/2024 CBC WITH DIFFE RENTI AL/PL ATELE T MCV 96 fL 79-97 Not Available [facility] ([facility]) [address] [facility], [place], [address], 07/14/2024 09:18:55 07/14/19 25 07/14/2024 CBC WITH DIFFE RENTI AL/PL ATELE T MCH 31.9 pg 26.6-3 3.0 Not Available [facility] ([facility]) [address] [facility], [place], [address], 07/14/2024 09:18:55 07/14/19 25 07/14/2024 CBC WITH DIFFE RENTI AL/PL ATELE T MCHC 33.2 g/dL 31.5-3 5.7 Not Available [facility] ([facility]) [address] [facility], [place], [address], 07/14/2024 09:18:55 07/14/1907/14/2024 CBC WITH DIFFE RENTI AL/PL ATELE T RDW 13.1 % 11.6-1 5.4 Not Available [facility] ([facility]) [address] [facility], [place], [address], 07/14/2024 09:18:55 07/14/19 25 07/14/2024 CBC WITH DIFFE RENTI AL/PL ATELE T platelets 268 x10e3 /uL 150-45 0 Not Available [facility] ([facility]) [address] [facility], [place], [address], 07/14/2024 09:18:55 07/14/19 25 07/14/2024 CBC WITH DIFFE RENTI AL/PL ATELE T neutrophils 47 % notest ab. Not Available [facility] ([facility]) [address] [facility], [place], [address], 07/14/2024 09:18:55 07/14/19 25 07/14/2024 CBC WITH DIFFE RENTI AL/PL ATELE T lymphs 41 % notest ab. Not Available [facility] ([facility]) [address] [facility], [place], [address], 07/14/2024 09:18:55 07/14/19 25 07/14/2024 CBC WITH DIFFE RENTI AL/PL ATELE T monocytes 9 % notest ab. Not Available [facility] ([facility]) [address] [facility], [place], [address], 07/14/2024 09:18:55 07/14/19 25 07/14/2024 CBC WITH DIFFE RENTI AL/PL ATELE T eos 2 % notest ab. Not Available [facility] ([facility]) [address] [facility], [place], [address], 07/14/2024 09:18:55 07/14/19 25 07/14/2024 CBC WITH DIFFE RENTI AL/PL ATELE T basos 1 % notest ab. Not Available [facility] ([facility] [facility]) [address] [place], [address], 07/14/2024 09:18:55 07/14/19 25 07/14/2024 CBC WITH DIFFE RENTI AL/PL ATELE T neutrophils (absolute) 3.3 x10e3 /uL 1.4-7. 0 Not Available [facility] ([facility]) [address] [facility], [place], [address], 07/14/2024 09:18:55 07/14/19 25 07/14/2024 CBC WITH DIFFE RENTI AL/PL ATELE T lymphs (absolute) 2.9 x10e3 /uL 0.7-3. 1 Not Available [facility] ([facility]) [address] [facility], [place], [address], 07/14/2024 09:18:55 07/14/19 25 07/14/2024 CBC WITH DIFFE RENTI AL/PL ATELE T monocytes(ab solute) 0.7 x10e3 /uL 0.1-0. 9 Not Available [facility] ([facility]) [address] [facility], [place], [address], 07/14/2024 09:18:55 07/14/19 25 07/14/2024 CBC WITH DIFFE RENTI AL/PL ATELE T eos (absolute) 0.2 x10e3 /uL 0.0-0. 4 Not Available [facility] ([facility]) [address] [facility], [place], [address], 07/14/2024 09:18:55 07/14/19 25 07/14/2024 CBC WITH DIFFE RENTI AL/PL ATELE T baso (absolute) 0.1 x10e3 /uL 0.0-0. 2 Not Available [facility] ([facility]) [address] [place], [address], 07/14/2024 09:18:55 07/14/1907/14/2024 CBC WITH DIFFE RENTI AL/PL ATELE T immature granulocytes 0 % notest ab. Not Available [facility] ([facility]) [address] [place], [address], 07/14/2024 09:18:55 07/14/19 25 07/14/2024 CBC WITH DIFFE RENTI AL/PL ATELE T immature grans (abs) 0.0 x10e3 /uL 0.0-0. 1 Not Available [facility] ([facility]) [address] [place], [address], 07/14/2024 09:18:55 Result Notes None recorded. 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 Active 2023 [place]ater[place] [facility] 4 11:54:17 Sensorineural hearing loss 13656499 Active 2023 [place] [facility] 4 11:54:30 Benign essential hypertension 4923678 Active 2023 Kater[place] [facility] 4 11:54:37 Impaired fasting glycemia 290562418 Active 2023 [place]ater[place] [facility] 4 11:54:50 Prostate specific antigen above reference range 440787827 Active 2023 [place]ater[place] [facility] 4 11:55:07 Long-term drug therapy Active 2023 MOON Quevedo Attn: Accountin g,[address] [place], [address], [place] - [facility] 4 00:42:14 Chronic insomnia 986397936 Active 2023 MOON Quevedo Attn: Accountin g,[address] [facility], [place], [address], [place] [facility] 4 00:43:32 Body mass index 30+ - obesity 707638406 Active 2024 MOON Quevedo Attn: Accountin g,[address] [facility], [place], [address], [place] [facility] 5 17:10:54 Problem Notes None recorded. Procedures Surgical History Date Name Laterality Status Provider Name and Address Organization Details Recorded Time 8 colonoscopy completed Katerine Mckeon [facility] 07/27/2023 11:56:58 Imaging Results None recorded. Procedure Notes None recorded. Medical Equipment None Reported. Allergies No known drug allergies Medications Name Sig Start Date Stop Date Status Note LastModified by Organization Details LastModified Time atorvastatin 20 mg tablet Take 1 tablet every day by oral route. 2024 active Not Available Not Available Not Avai lable azithromycin 250 mg tablet TAKE 2 TABLETS (500 MG) BY ORAL ROUTE ONCE DAILY FOR 1 DAY THEN 1 TABLET (250 MG) BY ORAL ROUTE ONCE DAILY FOR 4 DAYS 07/19 completed Not Available Not Available Not Available benzonatate 200 mg capsule Take 1 capsule 3 times a day by oral route, for cough. 07/19 completed Not Available Not Available Not Available amlodipine 10 mg tablet TAKE 1 TABLET BY MOUTH EVERY DAY 2024 active Not Available Not Available Not Avai lable cephalexin 500 mg capsule TAKE ONE CAPSULE BY MOUTH FOUR TIMES DAILY UNTIL ALL TAKEN 07/19 completed Not Available Not Available Not Available zolpidem 10 mg tablet TAKE 1 TABLET EVERY DAY 2024 active Not Available Not Available Not Avai lable lisinopril 40 mg tablet TAKE 1 TABLET TWICE DAILY 2024 active Not Available Not Available Not Avai lable Vitals Date Recorded Body height Body mass index (BMI) Body weight Respiratory rate Oxygen saturation Oxygen saturation in Arterial blood by Pulse oximetry Heart rate Systolic And Diastolic Provider Name and Address Organization Details Last Updated DateTime 5 170.82 cm 30.5 kg/m2 25237.1 g 18 /min 99 % 99 % 80 /min 138/82 mm[Hg] Manoj Slater MA [facility] 5 10:05:19 Date Recorded Body weight Respiratory rate Body mass index (BMI) Body height Oxygen saturation Oxygen saturation in Arterial blood by Pulse oximetry Heart rate Provider Name and Address Organization Details Last Updated DateTime 4 29423.1 7 g 20 /min 29.9 kg/m2 170.82 cm 98 % 98 % 72 /min Manoj Slater MA [facility] 09:57:55 Date Recorded Respiratory rate Systolic And Diastolic Provider Name and Address Organization Details Last Updated DateTime 01/27/2024 18 /min 130/80 mm[Hg] MOON Quevedo Attn: Accounting,[address] [facility], [place], [address], [facility] 01/27/2024 10:14:17 Date Recorded Body height Body mass index (BMI) Body weight Oxygen saturation Oxygen saturation in Arterial blood by Pulse oximetry Heart rate Systolic And Diastolic Provider Name and Address Organization Details Last Updated DateTime 170.82 cm 30 kg/m2 78299.2 5 g 96 % 96 % 81 /min 150/80 mm[Hg] Yuliana Sousa MA [facility] 09:45:48 Social History Question Answer Notes LastModified by Organizat ion Details LastModified Time Tobacco Smoking Status Never Smoker Katerine estrada, [facility] 07/27/2023 11:55:41 Do You Have An Advance Directive? No Information not available 07/27/2023 Are You Blind Or Do You Have Difficulty Seeing? No [email or web address] Information not available 07/27/2023 What Is Your Level Of Caffeine Consumption? None [email or web address] Information not available 07/27/2023 In The 14 Days Before Symptom Onset, Have You Had Close Contact With A Laboratory-confir med COVID-19 While That Case Was Ill? No [email or web address] Information not available 07/27/2023 In The 14 Days Before Symptom Onset, Have You Had Close Contact With A Person Who Is Under Investigation For COVID-19 While That Person Was Ill? No Information not available 07/27/2023 Have You Been To An Area Known To Be High Risk For COVID-19? No Information not available 07/27/2023 Are You Deaf Or Do You Have Serious Difficulty Hearing? Yes Right Ear Is About Gone States That He Is Having Troubles. Information not available 07/29/2023 What Type Of Diet Are You Following? REGULAR [email or web address] Information not available 07/27/2023 Are There Any Guns Present In Your Home? No Information not available 07/19/2024 What Was The Date Of Your Most Recent Tobacco Screening? 07/19/2024 Information not available 07/19/2024 What Is Your Relationship Status? Single Information not available 07/27/2023 Do You Use Your Seat Belt Or Car Seat Routinely? Yes [email or web address] Information not available 07/27/2023 Do You Have Smoke And Carbon Monoxide Detectors In Your Home? Yes [email or web address] Information not available 07/27/2023 Do You Use Sunscreen Routinely? No [email or web address] Information not available 07/27/2023 Has Tobacco Cessation Counseling Been Provided? Yes Information not available 07/28/2023 On What Date Was Tobacco Cessation Counseling Provided? 07/19/2024 Information not available 07/19/2024 Sex: Male Functional Status Question Answer Note LastModified by Organizat ion Details LastModified Time Do you use any illicit or recreational drugs? No [email or web address] Information not available 07/27/2023 Do you or have you ever used any other forms of tobacco or nicotine? No [email or web address] Information not available 07/27/2023 What is your level of alcohol consumption? Occasional [email or web address] Information not available 07/27/2023 Are you currently employed? No [email or web address] Information not available 07/27/2023 Are you able to care for yourself? Yes [email or web address] Information n ot available 07/27/2023 What is your exercise level? Heavy Information not available 07/27/2023 Mental Status Question Answer Note LastModified by Organization D etails LastModified Time Do you feel stressed (tense, restless, nervous, or anxious, or unable to sleep at night)? [id number] Information not available 07/29/2023 Family History Relationship Description Onset Age of this Age Resolved Age Notes LastModified by Organization Details LastModified Time Mother Dementia Not availab le 07/27/2023 11:55:18 Medical History Condition Response Coronary Artery Disease N Other N Atrial Fibrillation N High Blood Pressure Y Thyroid Problems N Kidney or Bladder Problems N GI Problems N Depression N COPD N Blood Clots N Skin Problems N Anemia N Heart Attack ([place]) N Diabetes N Anxiety Disorder N Muscle, Joint, or Bone Problems N Seizures/Epilepsy N Acid Reflux (GERD) N Cancer N Stroke N Asthma N Allergies N High Cholesterol Y Hepatitis N Liver Disease N Headaches N Osteoporosis N Heart Failure N Immunizations Vaccine Type Date Status Note Provider Nam e and Address Organization Details Recorded Time zoster recombinant 1 completed NILE Khan[place] [facility] 01/26/2024 10:07:06 Influenza, high-dose, quadrivalent, PF 1 completed Manoj Sl[place] [facility] 01/26/2024 10:07:06 Influenza, adjuvanted, quadrivalent, PF 3 completed Manoj [place] [facility] 01/26/2024 10:07:06 Influenza, adjuvanted, quadrivalent, PF 2 completed Manoj [place] [facility] 01/26/2024 10:07:06 COVID-19, mRNA, LNP-S, PF, 100 mcg/0.5mL dose or 50 mcg/0.25mL dose 1 completed Manoj [place] [facility] 01/26/2024 10:07:06 COVID-19, mRNA, LNP-S, PF, 100 mcg/0.5mL dose or 50 mcg/0.25mL dose 1 completed Manoj [place] [facility] 01/26/2024 10:07:06 COVID-19, mRNA, LNP-S, PF, 100 mcg/0.5mL dose or 50 mcg/0.25mL dose 2 completed Manoj [place] [facility] 01/26/2024 10:07:06 COVID-19, mRNA, LNP-S, PF, 100 mcg/0.5mL dose or 50 mcg/0.25mL dose 1 completed Manoj [place] [facility] 01/26/2024 10:07:06 COVID-19, mRNA, LNP-S, PF, nestor-sucrose, 30 mcg/0.3 mL 3 completed Man[place] [facility] 01/26/2024 10:07:06 pneumococcal polysaccharide PPV23 9 completed Manoj [place] [facility] 01/26/2024 10:07:06 influenza, unspecified formulation 3 completed Manoj [place] [facility] 01/26/2024 10:07:06 influenza, unspecified formulation 2 completed Manoj [place] [facility] 01/26/2024 10:07:06 Pneumococcal conjugate PCV 13 7 completed Manoj [place] [facility] 01/26/2024 10:07:06 zoster live 3 completed Manoj [place] [facility] 01/26/2024 10:07:06 Influenza, high-dose, trivalent, PF 8 completed Manoj [place] [facility] 01/26/2024 10:07:06 Influenza, high-dose, trivalent, PF 5 completed Manoj [place] [facility] 01/26/2024 10:07:06 Influenza, high-dose, trivalent, PF 7 completed Manoj [place] [facility] 01/26/2024 10:07:06 Influenza, high-dose, trivalent, PF 6 completed Manoj [place] [facility] 01/26/2024 10:07:06 Influenza, split virus, trivalent, preservative 4 completed Manoj [place] [facility] 01/26/2024 10:07:06 Influenza, split virus, trivalent, PF 0 completed Man[place] [facility] 01/26/2024 10:07:06 influenza nasal, unspecified formulation 4 completed Manoj [place] [facility] 01/26/2024 10:07:06 Influenza, high-dose, trivalent, PF 4 completed MOON Quevedo Attn: Accounting,[address], [place], [address], [facility] 02/06/2024 00:41:01 Past Encounters Encounter ID Performer Location Encounter Start Date Encounter Closed Date Diagnosis/Indication Diagnosis SNOMED-CT Code Diagnosis ICD10 Code Diagnosis Note [id number] Emmanuel Moreno MD [facility] [address] [place] [address] 07/29/2023 09:41:25 07/29/2023 11:04:22 Benign essential hypertension 4656550 I10 stable on lisinopril 40mg bid and amlodpine 10mg daily. Hyperlipidemia 89096204 E78.5 fasting lipids due. on statin therapy , stable. Impaired f asting glycemia 535518120 R73.01 IFG on labs. following a1c lab Prostate s pecific antigen above reference range 443694352 R97.20 hx of elevated PSA, , has seen Urology, continuing to monitor. due for updated psa reflex to free ordered Long-term drug therapy 083413913 Z79.899 full lab panel due in [id number] Emmanuel Moreno MD [facility] [facility] [address] [place] [address] 01/27/2024 09:31:55 01/27/2024 10:59:14 Administration of influenza vaccine 53602116 Z23 Flu shot given today Benign ess ential hypertension 8383870 I10 stable on lisinopril 40mg bid and amlodpine 10mg daily. Hyperlipidemia 89299659 E78.5 fasting lipids due. on statin therapy , stable. Impaired f asting glycemia 624537111 R73.01 5.6% A1c, 1 0 for fasting on labs ; iFG on labs. following a1c lab Prostate s pecific antigen above reference range 937959462 R97.20 hx of elevated PSA, , patient must see Urology his PSA is up to 8.3 and he is overdue for follow-up and has yet to schedule with them. I have encouraged him yet again today to reach out to his urology team. At a minimum the only thing that we can do is repeat PSA totals 2 reflex and free every 6 months. Long-term drug therapy 864982164 Z79.899 Lab panel due in July Chronic insomnia 6137865 F5.04 Patient is stable on zolpidem 10 mg p.o. q.h.s. [id number] Emmanuel Moreno MD [facility] - [facility] [address] [place] [address] 07/19/2024 09:43:22 07/19/2024 11:12:55 Body mass index 30+ - obesity 319801251 Z68.30 E66.9 BMI 30.5 Benign ess ential hypertension 6729609 I10 stable on lisinopril 40mg bid and amlodipine 10mg daily. Blood pressure is 138/82 today on exam. Hyperlipidemia 56994781 E78.5 Lipids are stable, on statin therapy , next labs due in January Impaired f asting glycemia 012625221 R73.01 5.6% A1c continue to monitor blood glucose averages Prostate s pecific antigen above reference range 389310346 R97.20 hx of elevated PSA, , patient must see Urology and he is overdue for follow-up and has yet to schedule with them. I have encouraged him yet again today to reach out to his urology team. Current PSA has increased 9.4 from 8.3 in Jan. We are going to replace a referral again in hopes to facilitate this sooner but he needs to call them jessica. Chronic insomnia 7548325 F51.04 Patient is stable on zolpidem 10 mg p.o. q.h.s. Long-term drug therapy 712198576 Z79.899 Next labs due in January Health Concerns Section Related Observation LastModified by Organization Detai ls LastModified Time None Recorded Concern Status LastModified by Organization Details LastModified Time None Recorded Advance Directives Directive N: Payers Insurance Date Sequence Insurance Name Policy Number Policy Reynolds Covered Member ID Reynolds Member ID Guarantor Name 08/07/2024 1 [employer] (MEDICARE REPLACEMENT/A DVANTAGE - HMO) Emmanuel Walker [id number] Emmanuel Walker Notes Date Note Type Note Provider Name and Address Organization Details Recorded Time 4 text/html HyperlipidemiaReported bypatient.Notes:stable on atorvastatin 20mg daily.HypertensionReported bypatient.Notes:stable on amlodipine 10mg daily and Lisinopril 40mg bidInsomniaReported bypatient.Notes:stable on zolpidem 10mg qhs Impaired fasting glycemia.Hx of raised PSA MOON Quevedo Attn: Accounting,[address], [place], [address], [place] [facility] 08/04/2023 00:16:57 4 text/html HyperlipidemiaReported bypatient.Notes:stable on atorvastatin 20mg daily.HypertensionReported bypatient.Notes:stable on amlodipine 10mg daily and Lisinopril 40mg bidInsomniaReported bypatient.Notes:stable on zolpidem 10mg qhs Impaired fasting glycemia.Hx of raised PSA with levels elevated again on labs MOON Quevedo Attn: Accounting,[address], [place], [address], [place] [facility] 02/06/2024 00:44:07 5 text/html HyperlipidemiaReported bypatient.Notes:stable on atorvastatin 20mg daily.HypertensionReported bypatient.Notes:stable on amlodipine 10mg daily and Lisinopril 40mg bidInsomniaReported bypatient.Notes:stable on zolpidem 10mg qhs Impaired fasting glycemia.Hx of raised PSA with levels elevated again on labs MOON Quevedo Attn: Accounting,[address], [place], [address], [facility] - [facility] 08/05/2024 17:11:15
[2024-10-17 07:10] VITALS: BP 129/92; PULSE 81; RESP 20; TEMP 36.6; O2SAT 98; BMI 29.0
[2024-10-17] MEDS: LACTATED RINGERS 1,000 ML 150 ML IV CONT (07:17)
--- NOTE | 2024-10-17 08:12 | P.PNAN_ITS ---
Anes - Initial Pre Proc Eval Procedure: Operation Date: 10/17/24 08:30 Proposed Procedures p Screening Colonoscopy - Mamadou Jay MD Date/Time: 10/17/24 08:12 Surgeon: Mamadou Jay MD Pre Op Diagnosis: screening malignant neoplasm of colon Patient Data Age: 79 Gender: M Height: 1.68 m Weight: 81.5 kg Last Vital Signs Temp 97.9 F 10/17/24 07:10 Pulse 81 10/17/24 07:10 Resp 20 10/17/24 07:10 BP 129/92 H 10/17/24 07:10 Pulse Ox 98 10/17/24 07:10 O2 Del Method Room Air 10/17/24 07:10 Allergies Allergy/AdvReac Type Severity Reaction Status Date / Time No Known Allergies Allergy Verified 10/17/24 07:09 Home Medications ?Medication ?Instructions ?Recorded ?Confirmed ?Type amlodipine 10 mg tablet 10 mg PO DAILY 09/27/24 10/17/24 History atorvastatin 20 mg tablet 20 mg PO QPM 09/27/24 10/17/24 History lisinopril 40 mg tablet 40 mg PO BID 09/27/24 10/17/24 History zolpidem 10 mg tablet 10 mg PO QPM 09/27/24 10/17/24 History Patient hx anesthesia problems: none Family hx anesthesia problems: none Results Review: All pre-operative results and documents have been reviewed as part of the pre- operative evaluation. [facility] Family History Family History (Updated 11/29/13 @ 07:13 by DOCTOR UNKNOWN) Father Family history of heart disease in male family member before age 55 Social History Social History Smoking status: Former smoker Alcohol intake: current Drinks per week: 35 Substance use type: does not use Living arrangements: with family Spiritual care concerns: No Anes - Eval Final PreProcedure Day of Procedure 10/17/24 08:12 Patient weight: normal Heart: regular rate and rhythm Lungs: clear to auscultation Airway: Mallampati scale class II Neurological: alert and oriented Last oral intake: >/= 8 hours ASA classification: II Emergent: no Anesthetic plan: proceed Anesthesia type and monitoring: general GIVS and standard monitoring Results Review: All pre-operative results and documents have been reviewed as part of the pre- operative evaluation. Informed Consent: The patient's anesthetic plan and its attendant risks and benefits were discussed with the patient/family/POA. Questions were solicited and answers provided to the satisfaction of the patient/family/POA.
--- NOTE | 2024-10-17 08:16 | PM.IMHP ---
H&P: HPI History of Present Illness Date/Time: 10/17/24 08:16 Chief Complaint: Screening colonoscopy Narrative: This is the patient's 4th colonoscopy. There are no GI symptoms and there is no family history of colorectal cancer. Review of Systems Review of Systems: All systems reviewed & are unremarkable except as noted in HPI and below PMFSH Family History Family History (Updated 11/29/13 @ 07:13 by DOCTOR UNKNOWN) Father Family history of heart disease in male family member before age 55 Social History Social History Smoking status: Former smoker Alcohol intake: current Drinks per week: 35 Substance use type: does not use Living arrangements: with family Spiritual care concerns: No Meds Home Medications and Allergies Home Medications ?Medication ?Instructions ?Recorded ?Confirmed ?Type amlodipine 10 mg tablet 10 mg PO DAILY 09/27/24 10/17/24 History atorvastatin 20 mg tablet 20 mg PO QPM 09/27/24 10/17/24 History lisinopril 40 mg tablet 40 mg PO BID 09/27/24 10/17/24 History zolpidem 10 mg tablet 10 mg PO QPM 09/27/24 10/17/24 History Allergies Allergy/AdvReac Type Severity Reaction Status Date / Time No Known Allergies Allergy Verified 10/17/24 07:09 Vital Signs Vital Signs - 24 hr 10/17/24 07:10 Temperature 97.9 F Pulse Rate 81 Respiratory Rate 20 Blood Pressure 129/92 H Pulse Oximetry 98 Oxygen Delivery Room Air Exam Const: General: cooperative and healthy appearing Resp: Effort & Inspection: normal respiratory effort and able to speak in complete sentences Auscultation: clear to auscultation bilaterally Cardio: Rate: regular rate Rhythm: regular rhythm GI: Inspection: normal to inspection GI Palp: No No hepatosplenomegaly present Auscultation: normal bowel sounds Rectal Exam: deferred Skin: General skin exam: normal color Psych: Appearance: grossly normal Mental Status: mental status grossly normal Assessment and Plan Assessment and plan (1) Encounter for screening colonoscopy: Code(s): Z12.11 - Encounter for screening for malignant neoplasm of colon Status: Acute Assessment and Plan: The patient is deemed a good candidate for the procedure. Consent signed. Will proceed.
[2024-10-17 08:33] VITALS: BP 110/68; PULSE 68; RESP 18; O2SAT 99
[2024-10-17 08:43] VITALS: BP 124/66; PULSE 64; RESP 23; O2SAT 100
[2024-10-17 08:53] VITALS: BP 126/69; PULSE 65; RESP 18; O2SAT 98
== END 2024-10-17 09:16 | disposition home or self-care (01) ==
PROVIDERS: PCP Physician Assistant; Referring Provider Physician Assistant; Visit Provider Internal Medicine Gastroenterology
PROC: 0DJD8ZZ Inspection of Lower Intestinal Tract, Via Natural or Artificial Opening Endoscopic (ICD-10-PCS; CPT 45378; principal; 2024-10-17 08:30)
DX: Z12.11 Encounter for screening for malignant neoplasm of colon (principal); K57.30 Diverticulosis of large intestine without perforation or abscess without bleeding; K64.8 Other hemorrhoids; Z87.891 Personal history of nicotine dependence
CPT/HCPCS: G0121; J2704; J7120